=== PATIENT | male | born 1970 | race Caucasian/White ===

== ENCOUNTER 2017-08-11 23:45 | Emergency (ER) | payer MEDICAID ==
--- NOTE | 2017-08-12 00:35 | ED Physician Chart ---
ED Chief Complaint/HPI - Patient Information Date Seen:: 08/12/17 Time Seen:: 00:02 Chief Complaint:: R thigh and R lower leg pain since yesterday. History of Present Illness:: Pt took the bus and walked in this ER for the above reason. Pt reportedly had a fall 2 months ago because he slipped in the shower stall. Pt was evaluated at an emergency room in [facility] with X-rays done to his lumbar spine and RLE which were normal. No recent injury. No LE weakness or numbness. No urinary or fecal incontinence or retention. Pt remains ambulatory without difficulty. Pt has not had any analgesic over past 4 days. Pt had last dose of analgesic with ibuprofen about 4 days ago. Pt is here for pain control. Pt does not want any X-ray to be done as he has no recent injury. Allergies:: Allergies Allergy/AdvReac Type Severity Reaction Status Date / Time No Known Allergies Allergy Verified 08/12/17 00:19 Vitals:: Vital Signs - 8 hr 08/11/17 23:50 Temp 97.7 F HR 87 RR 16 BP 167/109 O2 Sat % 99 Historian:: Patient Family MD/PCP:: unknown LMP:: N/A Review:: Nurse's Note Reviewed ED Review of Systems - Review of Systems General/Constitutional: No fever, No chills, No weight loss, No weakness, No diaphoresis, No edema, No loss of appetite Skin: No skin lesions, No rash, No bruising Head: No headache, No light-headedness Eyes: No loss of vision, No pain, No diplopia ENT: No earache, No nasal drainage, No sore throat Neck: No neck pain, No swelling, No stiffness Cardio Vascular: No chest pain, No palpitations, No edema Pulmonary: No SOB, No cough, No wheezing GI: No nausea, No vomiting, No diarrhea, No pain G/U: No dysuria, No frequency, No hematuria Musculoskeletal: Other (R thigh and lower leg pain.) Endocrine: No polyuria, No polydipsia Psychiatric: No prior psych history Hematopoietic: No bruising, No lymphadenopathy Allergic/Immuno: No urticaria, No angioedema Neurological: No syncope, No focal symptoms, No weakness, No paresthesia, No headache, No dizziness, No confusion ED Past Medical History - Past Medical History Past Medical History: HTN Family History: Heart disease (mother) Social History: Smoker (4 cigarets daily. Pt has been informed about health risks associated with chronic tobacco use and has been advised to quit. Pt has been encouraged to enroll in a smoking cessation program. Pt acknowledges understanding.), No Alcohol, No Drug Use, Single, Other (lives with his brother. ) Employment:: Unemployed. Surgical History: other (L wrist surgey about 10 days ago.) Psychiatricy History: None Medication: Reviewed Family Medical History - Family Member Mother Living Status: ED Physical Exam - Physical Examination General/Constitutional: Awake, Well-developed, well-nourished, Alert, No distress, GCS 15, Non-toxic appearing, Ambulatory Other Gen/Cons comments:: Breathes comfortably, speaks clearly, and ambulates without assistance without difficulty. Head: Atraumatic Eyes: Lids, conjuctiva normal, PERRL, EOMI Skin: Nl inspection, No rash, No skin lesions, No ecchymosis, Well hydrated, No lymphadenopathy ENMT: External ears, nose nl, Nasal exam nl, Oropharynx nl Neck: Nontender, Full ROM w/o pain, No nuchal rigidity, No mass, No stridor Respiratory: Nl effort/Exclusion, Clear to Auscultation, No Wheeze/Rhonchi/Rales Cardio Vascular: RRR, No murmur, gallop, rubs GI: No tenderness/rebounding/guarding, No organomegaly, Normal BS's, Nondistended Other GI comments:: Abdomen is soft. Other Extremities comments:: RLE: FROM of all joint. Mild vague tenderness at lateral aspect of R thigh and R lower leg. No gross deformity, erythema, swelling, ecchymosis, or open wound. No joint pain or other abnormalities. Both hips and knees are nontender without abnormal findings. No leg length discrepancy. Pt can medially and laterally rotate both hips without difficulty. Neuro/Psych: Alert/oriented (x 3), Judgement/insight normal, Mood normal, Normal gait, No focal deficits Misc: normal gait, Normal back, No paraspinal tenderness ED Septic Shock - . Is Septic Shock (SBP<90, OR Lactate>4 mmol\L) present?: No - <6hrs of presentation: Vital Signs: Vital Signs - 8 hr 08/11/17 23:50 Temp 97.7 F HR 87 RR 16 BP 167/109 O2 Sat % 99 ED Reassessment (Disposition) - Reassessment Reassessment:: 0210 Pt feels much better. Pt requests to leave now. Aftercare instructions have been given. Reassessment Condition:: Improved - Diagnosis Diagnosis:: Chronic RLE pain from old injury, stable and improved. - Aftercare/Follow up Instructions Aftercare/Follow-Up Instructions:: Refer to Discharge Instructions Notes:: Avoid excessive wt bearing activities. Pt has been instructed to stop tobacco use. May take Tylenol 500 mg tab one tab po q6h prn pain. May also take Motrin 200 mg tab 3-4 tabs po q8h prn pain, not to take next dose at least 6 hours after Toradol was given here. F/U with Dr. Priest or PCP of pt's choice in one day for recheck. Return to ER immediately if condition worsens or if any further questions/problems. Medication Prescribed:: None - Patient Disposition Discharge/Transfer:: Home Time:: 02:10 Condition at Disposition:: Stable, Improved ED Discharge Plan - Patient Disposition Instructions: Chronic Back Pain
== END 2017-08-12 02:10 | disposition home or self-care (01) ==
LOC: ER 23:45
DX: G89.29 Other chronic pain (principal); M79.661 Pain in right lower leg; M79.651 Pain in right thigh; I10 Essential (primary) hypertension; F17.210 Nicotine dependence, cigarettes, uncomplicated
CPT/HCPCS: 99283; 96372; J1885; Z7502